=== PATIENT | female | born 2000 | race Caucasian/White ===

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

== ENCOUNTER → 2021-01-31 10:02 | Outpatient (CLI) | payer OTHER, SELFPAY | PROVIDERS: PCP Pediatrics; Referring Provider Pediatrics; Visit Provider Pediatrics | DX: R39.9 Unspecified symptoms and signs involving the genitourinary system (principal) | CPT/HCPCS: 87086; 87088 ==

== ENCOUNTER 2021-02-03 21:18 | Emergency (ER) | payer OTHER, SELFPAY ==
[2021-02-03 21:19] VITALS: BP 120/93; PULSE 98; RESP 16; TEMP 36.1; O2SAT 100; BMI 18.3
--- NOTE | 2021-02-03 22:17 | EKG12_ITS ---
Test Reason : CP Blood Pressure : / mmHG Vent. Rate : 071 BPM Atrial Rate : 071 BPM P-R Int : 122 ms QRS Dur : 072 ms QT Int : 388 ms P-R-T Axes : 071 075 056 degrees QTc Int : 421 ms Sinus rhythm with marked sinus arrhythmia Otherwise normal ECG Confirmed by GIO CLANCY, DENISA ([id number]), assignment editor BELEM DOSHI ([id number]) on 02/06/2021 9:28:10 AM Referred By: DIANN Confirmed By:DENISA POWERS MD
--- NOTE | 2021-02-03 22:18 | ED.VIS.GI ---
HPI HPI - GI History of Present Illness Chief Complaint: Abd Pain Informant: patient Abdominal Pain/Flank Pain Onset: Weeks (several) Context: Gradual Onset Timing: Continuous (all day today) Quality: Aching Location: Diffuse (but more LUQ) Current Severity: Moderate Maximum Severity: Moderate Worsened by: - (unsure; nothing that she knows of, and unk if food/meal association) Relieved by: Nothing Nausea/Vomiting/Emesis GI Symptom: Positive for Nausea; Negative for Vomiting Diarrhea/Melena/Hematochezia GI Symptom: Negative for Diarrhea, Melena and Hematochezia Associated Symptoms Associated Symptoms: Negative for Dysuria, Frequency, Hematuria and Urgency Narrative Narrative: Patient's been having intermittent left-sided lower sharp nonpleuritic brief chest pains for the past 1.5 weeks. She is also been having intermittent abdominal discomfort that seems diffuse but oftentimes focused in the left upper quadrant. That pain is been more significant and constant all day today hence her coming to the emergency department. While having all of this discomfort she has had 3 or 4 episodes of brief sharp relatively discomforting episodes of the chest pain. No shortness of breath, pleuritic symptoms, near syncope, palpitations. She did see her PCP regarding some of the symptoms, and was referred to cardiology after having a normal urinalysis. She has an echocardiogram scheduled after the weekend. [facility] Medical History Abnormal tilt table test (07/2018) Ovarian cyst POTS (postural orthostatic tachycardia syndrome) Home Medications norgestimate 0.25 mg-ethinyl estradiol 35 mcg tablet 1 tab PO DAILY 07/10/18 [History Last Taken Unknown] Iron (ferrous sulfate) 325 mg PO.IVFORM DAILY 02/03/21 [History Last Taken Unknown] dicyclomine 20 mg PO .q4-6h PRN #20 capsule 02/04/21 [Rx Last Taken Unknown] pantoprazole [Protonix] 40 mg PO DAILY #14 tab 02/04/21 [Rx Last Taken Unknown] Allergy/AdvReac Type Severity Reaction Status Date / Time No Known Allergies Allergy Verified 02/03/21 21:19 Family History Other Hypertension Social History Smoking Status: Never smoker alcohol intake: never substance use type: does not use what type of physical activity do you participate in: running and weight training frequency: 3-4 times per week ROS ROS ED Constitutional Constitutional ED: Denies chills or fever(s) Eyes Eyes: Denies change in vision or diplopia ENT ENT ED: Denies rhinorrhea or sore throat Cardiovascular Cardiovascular: Reports chest pain; Denies palpitations Respiratory/Chest Respiratory/Chest: Denies cough or dyspnea Gastrointestinal Gastrointestinal: Reports abdominal pain, nausea and vomiting; Denies diarrhea Genitourinary Genitourinary ED: Denies dysuria or hematuria Musculoskeletal Musculoskeletal: Denies back pain or neck pain Integumentary Denies abscess or rash Neurologic Neurologic: Denies headache(s), paresthesias or weakness Psychiatric Psychiatric: Denies anxiety or suicidal thoughts EXAM Physical Exam Const Vital Signs: 02/03/21 21:19 Temperature 97.0 F L Temperature Source Temporal Pulse Rate 98 Respiratory Rate 16 Blood Pressure 120/93 H Blood Pressure Mean 102 Pulse Ox 100 Oxygen Delivery Method Room Air Positive well nourished and well developed General Appearance ED: well developed and NAD HEENT Reports moist mucous membranes normocephalic and atraumatic Eyes PERRL and EOMs intact bilaterally Neck full ROM and supple Resp normal respiratory effort and clear to auscultation bilaterally Cardio regular rate, regular rhythm and no murmurs GI non-distended GI Narrative: Diffusely mildly tender, mostly at the medial aspect of the left upper quadrant subcostal area. No guarding or rebound. Negative Gracia's. Inspection: Negative for Kehr's sign positive Auscultation: normoactive bowel sounds Palpation: soft Back/Spine no CVA tenderness General Back: other FROM Extremity normal to inspection General Extremety ED: Negative for edema, pulses abnormal or tenderness General Extremity: Negative for edema or pulses abnormal Neuro oriented x3, CN's II-XII intact bilaterally and no sensory deficits noted Sensorium / Orientation: awake and alert Motor Exam: strength 5/5 throughout Skin no rashes or lesions noted and no wounds MDM MDM MDM Narrative Medical decision making narrative: Work-up is normal, labs noted, chest x-ray normal, EKG normal. Patient does feel better after a GI cocktail, Bentyl, Zofran. She has a little bit of residual discomfort but notices a big difference. I think all of this is gastrointestinal in etiology. This does not sound like biliary colic to me. The chest discomfort is more likely to be esophageal/upper GI in nature, she is scheduled for an echo which she should follow-up with, and I will place her on a PPI to try in the meantime. She is comfortable with that plan. Lab Data Attestation: I reviewed the patient's lab results. Labs: Laboratory Results - last 24 hr 02/03/21 02/03/21 02/03/21 22:38 22:38 22:38 WBC 5.9 RBC 4.45 Hgb 13.4 Hct 39.5 MCV 88.8 MCH 30.1 MCHC 33.9 RDW Std Deviation 34.9 L RDW Coeff of Thu 10.7 L Plt Count 269 MPV 9.8 Immature Gran % (Auto) 0.200 Neut % (Auto) 35.9 L Lymph % (Auto) 56.9 H Ch[place] % (Auto) 5.9 Eos % (Auto) 0.8 Baso % (Auto) 0.3 Absolute Neuts (auto) 2.1 Absolute Lymphs (auto) 3.36 Nucleated RBC % 0 Sodium 139 Potassium 3.3 L Chloride 105 Carbon Dioxide 26.0 Anion Gap 8 BUN 12 Creatinine 0.87 Estim Creat Clear Calc 74.48 Est GFR (MDRD) Af Amer 107 Est GFR (MDRD) Non-Af 89 BUN/Creatinine Ratio 13.9 Glucose 99 Calcium 9.0 Total Bilirubin 0.10 L AST 14 L ALT 15 Alkaline Phosphatase 53 Troponin I High Sens 3 Total Protein 7.4 Albumin 3.4 Globulin 4.0 Albumin/Globulin Ratio 0.8 L Lipase 357 Serum , Qual NEGATIVE Radiography Diagnostic Testing: Clinical Impression(s) from Imaging Studies Chest X-Ray 02/03/21 23:00 IMPRESSION: Normal x-ray examination of the chest. Electronically Signed: Robert Khan MD ([place]) at 23:13 EDT , Service support , EKG Initial EKG: Attestation: I personally reviewed and interpreted this EKG as follows: Interpretation: Sinus Rhythm and No Acute Injury Pattern Comments: Normal EKG Discharge Plan Triage Chief Complaint: Abd Pain ED Provider: Darren Brenner Dx/Rx/DC Orders Clinical Impression: Acute upper abdominal pain, Intermittent left-sided chest pain Instructions: ED Epigastric Pain Uncertain Cause Prescriptions: New pantoprazole [Protonix] 40 mg tablet,delayed release (DR/EC) 40 mg PO DAILY Qty: 14 RF: 0 dicyclomine 10 MG capsule 20 mg PO .q4-6h PRN (Reason: abdominal discomfort) Qty: 20 RF: 0 No Action norgestimate-ethinyl estradiol [Ortho-Cyclen (28)] 0.25-35 mg-mcg tablet 1 tab PO DAILY RF: 0 Iron (ferrous sulfate) 325 mg PO.IVFORM DAILY RF: 0 Primary Care Provider: Veena Tsai Referrals: Veena Tsai DO [Primary Care Provider] - 1 Week if not improving Disposition Disposition: Home, Self Care
[2021-02-03] MEDS: Mag Hydrox/Al Hydrox/Simeth 30 ML UDC PO (22:32)
[2021-02-03] MEDS: Dicyclomine 10 MG Capsule 20 MG PO (22:33)
[2021-02-03 22:48] LABS: Absolute Lymphocyte Count 3.36 X10^3/uL (0.83-4.51); Absolute Neutrophil Count 2.1 X10^3/uL (2.0-7.7); Basophil# 0.02 X10^3/uL; Basophil% 0.3 % (0-1); Eosinophil# 0.05 X10^3/uL; Eosinophils% 0.8 % (0-5); Hematocrit 39.5 % (37-47); Hemoglobin 13.4 g/dL (12.0-15.0); Lymphocyte # 3.36 X10^3/ul (0.83-4.51); Lymphocyte % 56.9 % (19-41); Mean Corp Hgb Conc 33.9 g/dL (32-36); Mean Corpuscular Hgb 30.1 pg (27.0-32.0); Mean Corpuscular Volume 88.8 fL (81-99); Mean Platelet Vol. 9.8 fl (6.2-12.0); Monocyte# 0.35 X10^3/uL; Monocyte% 5.9 % (0-10); NRBC Flagged by Analyzer 0 % (0-5); Neutrophil # 2.11 X10^3/uL (2.7-7.7); Neutrophil % 35.9 % (47-70); Platelet Count 269 K/mm3 (150-450); RBC Distribution Width CV 10.7 % (11.6-14.6); RBC Distribution Width SD 34.9 fl (35.1-43.9); Red Blood Count 4.45 M/mm3 (4.2-5.4); White Blood Count 5.9 K/mm3 (4.4-11.0)
--- NOTE | 2021-02-03 23:00 | RAD_ITS ---
STUDY: X-RAY CHEST REASON FOR EXAM: Female, 20 years old. chest pain TECHNIQUE: PA and lateral views of the chest. COMPARISON: 09/17/2017 FINDINGS: The lungs are clear and expanded. There is no demonstrated pleural abnormality. Normal size heart. Normal mediastinum and savannah. Normal visualized pulmonary arteries. Normal visualized aortic arch and descending thoracic aorta. Normal visualized thoracic spine. Normal visualized ribs, clavicles, and shoulders. There is no demonstrated abnormality of the visualized soft tissue structures of the upper abdomen. RAD/Chest PA and Lateral IMPRESSION: Normal x-ray examination of the chest. Electronically Signed: Robert Khan MD ([place]) at 23:13 EDT , Service support ,
[2021-02-03 23:05] LABS: ALB/GLOB Ratio 0.8 RATIO (0.9-2.4); AST(SGOT) 14 U/L (15-37); Alanine Aminotransfer ALT/SGPT 15 U/L (13-56); Albumin, Serum 3.4 g/dL (3.2-5.0); Alkaline Phosphatase 53 U/L (45-117); Anion Gap 8 (5-15); BUN 12 mg/dL (7-18); BUN/Creat Ratio 13.9 RATIO (10-20); Chloride 105 mmol/L (98-107); Creatinine, Serum 0.87 mg/dL (0.55-1.02); EST Glomerular Filtration Rate 89 mL/min (>60); Est Glom Filt Rate - Afr Amer 107 mL/min (>60); Estimated Creatinine Clearance 74.48 ml/min; Glucose 99 mg/dL (74-106); Lipase 357 U/L (73-393); Potassium 3.3 mmol/L (3.5-5.1); Protein, Total 7.4 g/dL (6.4-8.2); Sodium Level 139 mmol/L (136-145); Troponin-I HS 3 pg/mL (3.0-54.0)
[2021-02-03 23:12] LABS: Internal QC Validated? YES +Cl - CLEAR BKGD; Pregnancy, Serum, hCG Quali. NEGATIVE Negative
[2021-02-04] MEDS: Pantoprazole Sodium 40 MG Tablet PO (00:31)
[2021-02-04 00:32] VITALS: PULSE 60; RESP 16; O2SAT 100
[2021-02-04 00:34] VITALS: PULSE 60; RESP 16; O2SAT 100
== END 2021-02-04 00:35 | disposition home or self-care (01) ==
PROVIDERS: Emergency Provider Emergency Medicine; PCP Pediatrics
DX: R10.12 Left upper quadrant pain (principal); R07.89 Other chest pain
CPT/HCPCS: 71046; 80053; 83690; 84484; 84703; 85025; 93005; 99284; A4216; J2405

== ENCOUNTER → 2021-02-07 10:55 | Outpatient (CLI) | payer OTHER, SELFPAY ==
--- NOTE | 2021-02-07 10:58 | ECHOD_ITS ---
Reason For Study: Arrhythmia, chest pain Procedure This was a 2D Doppler, Color Flow transthoracic echocardiogram. Myocardial strain analysis was performed in this exam to aid in the assessment of cardiac function. Exam performed in department. Left Ventricle Normal LV size. Left ventricular systolic function is lower limits of normal. Normal diastology for age. No regional wall motion abnormalities noted. Right Ventricle Normal RV size. Normal systolic function. Atria Normal left atrium. Normal right atrium. Mitral Valve Equivocal mitral valve prolapse. Tricuspid Valve Normal tricuspid valve. Aortic Valve Normal aortic valve. Trisinus/trileaflet aortic valve. Pulmonic Valve Normal pulmonic valve. Great Vessels Normal aortic root. The pulmonary artery is normal size. Normal inferior vena cava. Pericardium/Pleural Trivial pericardial effusion. MMode/2D Measurements & Calculations LVIDd: 4.3 cm IVSd: 0.70 cm Ao root diam: 2.2 cm LVIDs: 3.0 cm LVPWd: 0.73 cm RVDd: 2.7 cm FS: 31.3 % LAV(MOD-bp): 18.6 ml LVAd ap4: 22.4 cm2 LVAd ap2: 23.0 cm2 LAV(MOD-bp) Indexed: 13.0 ml/m2 LVLd ap4: 6.8 cm LVLd ap2: 7.6 cm LAV(MOD-sp2): 19.7 ml EDV(MOD-sp4): 62.1 ml EDV(MOD-sp2): 59.6 ml LAV(MOD-sp4): 16.5 ml EDV(sp4-el): 62.3 ml EDV(sp2-el): 59.2 ml LVAs ap4: 14.2 cm2 LVAs ap2: 14.3 cm2 LVLs ap4: 6.0 cm LVLs ap2: 6.7 cm ESV(MOD-sp4): 29.3 ml ESV(MOD-sp2): 27.1 ml ESV(sp4-el): 28.3 ml ESV(sp2-el): 26.2 ml EF(MOD-sp4): 52.8 % EF(MOD-sp2): 54.5 % EF(sp4-el): 54.6 % SV(MOD-sp4): 32.8 ml SV(MOD-sp2): 32.5 ml SV(sp4-el): 34.0 ml LA dimension(2D): 2.7 cm LA A4 area: 9.5 cm2 RA A4 area: 8.6 cm2 Doppler Measurements & Calculations MV E max maximilian: 64.6 cm/sec Lat Peak E' Maximilian: 16.3 cm/sec Med Peak E' Maximilian: 13.3 cm/sec MV A max maximilian: 35.9 cm/sec E/E' lat: 4.0 E/E' med: 4.9 MV E/A: 1.8 Ao V2 max: 100.2 cm/sec LV V1 max: 82.2 cm/sec PA V2 max: 95.6 cm/sec Ao max P.0 mmHg LV V1 max P.7 mmHg ECHO/Echo Complete Interpretation Summary Normal LV size. Left ventricular systolic function is lower limits of normal. Normal diastology for age. Equivocal mitral valve prolapse. The global longitudinal strain is mildly abnormal. Ordering Physician: Sonny Yip Referring Physician: Veena Tsai Performed By: Guillermina Chaudhry RDCS
[2021-02-07 13:51] LABS: Erythrocyte Sedimentation Rate 4 mm/hr (0-30)
[2021-02-07 13:57] LABS: D-Dimer Quantitative (DVT/PE) 0.62 FEU/ug/m (0.27-0.49)
[2021-02-07 14:11] LABS: CRP, High Sensitivity Cardiac 4.61 mg/L
[2021-02-07 17:28] LABS: Troponin-I HS 4 pg/mL (3.0-54.0)
== END ==
PROVIDERS: PCP Pediatrics; Referring Provider Internal Medicine Cardiovascular Disease; Visit Provider Internal Medicine Cardiovascular Disease
DX: I49.8 Other specified cardiac arrhythmias (principal); R42 Dizziness and giddiness; R06.02 Shortness of breath; R07.89 Other chest pain; R10.10 Upper abdominal pain, unspecified
CPT/HCPCS: 36415; 84484; 85379; 85652; 86141; 93306

== ENCOUNTER → 2021-02-07 14:56 | Outpatient (CLI) | payer OTHER, SELFPAY ==
--- NOTE | 2021-02-07 15:22 | CT_ITS ---
STUDY: CTA CHEST REASON FOR EXAM: Female, 20 years old. ELEVATED D-DIMER RADIATION DOSAGE (If Supplied By Facility): CTDIvol = ( 3.78 ) mGy, DLP = ( 126.37 ) mGycm TECHNIQUE: The examination was performed with the intravenous administration of IV 100mL Isovue-370. Post-processing of the angiographic images was performed, with multiplanar reformation and 3D reconstruction. Individualized dose optimization techniques were used for this CT. COMPARISON: Comparison is made with prior chest radiograph dated 02/03/2021. FINDINGS: Normal enhancement of the main pulmonary artery and right and left pulmonary arteries. Normal enhancement of the bilateral peripheral pulmonary arteries. There is no demonstrated pulmonary embolism. Normal thoracic aorta and visualized great vessels. There is no demonstrated aortic dissection. Normal heart and pericardium. Normal mediastinum. Normal hilar regions. Normal visualized trachea and bronchi. The lungs are well expanded. Normal pulmonary parenchyma. Normal pleura. Normal chest wall structures. Normal osseous structures. Normal visualized upper abdomen. CT/CTA Chest W/WO Contrast IMPRESSION: Normal CTA chest examination, without a demonstrated pulmonary embolism or arterial dissection. Electronically Signed: Elvis Rondon MD at 15:54 EDT , Service support ,
== END ==
PROVIDERS: PCP Pediatrics; Referring Provider Internal Medicine Cardiovascular Disease; Visit Provider Internal Medicine Cardiovascular Disease
DX: R79.1 Abnormal coagulation profile (principal)
CPT/HCPCS: 71275; Q9967

== ENCOUNTER → 2021-02-26 12:26 | Outpatient (CLI) | payer OTHER, SELFPAY ==
[2021-02-26 14:21] LABS: Internal QC Validated? YES +Cl - CLEAR BKGD; Pregnancy, Urine Negative Negative
[2021-02-26 14:23] LABS: CRP, High Sensitivity Cardiac 0.93 mg/L
== END ==
PROVIDERS: PCP Pediatrics; Visit Provider Internal Medicine Cardiovascular Disease
DX: R79.82 Elevated C-reactive protein (CRP) (principal); R10.0 Acute abdomen
CPT/HCPCS: 36415; 81025; 86141

== ENCOUNTER → 2021-02-26 14:12 | Outpatient (CLI) | payer OTHER, SELFPAY ==
--- NOTE | 2021-02-26 14:16 | CT_ITS ---
INDICATION: pain EXAMINATION: CT CHEST, ABDOMEN AND PELVIS WITH CONTRAST - CT Chest Abdomen And Pelvis W/ Contrast Injection TECHNIQUE: Helically acquired images were obtained of the chest, abdomen, and pelvis following IV contrast. CTA protocol with 3D reformats were performed. A radiation dose optimization technique was used for this scan. Oral contrast: None. COMPARISON: CT chest 02/07/2021 FINDINGS: ----Chest: LUNGS, PLEURA AND LARGE AIRWAYS: No masses, consolidation, or edema. No pleural effusion or thickening. No pneumothorax. THYROID: No thyroid lesions. HEART AND PERICARDIUM: Heart size is normal. No pericardial effusion. VESSELS: Thoracic aorta is not dilated. No aortic dissection. No obvious central pulmonary embolism although this study was not performed with the pulmonary embolism protocol. MEDIASTINUM AND IVETH: No mediastinal or hilar adenopathy. Esophagus is unremarkable. No hiatal hernia. BONES: No suspicious lytic or blastic abnormality. ----Abdomen/Pelvis: LIVER: Homogeneous. No focal mass. GALLBLADDER AND BILIARY TREE: No calcified gallstones. No gallbladder distension or wall edema. No intra- or extrahepatic biliary ductal dilation. PANCREAS: No focal cystic or solid mass. SPLEEN: Normal size without focal cystic or solid mass. ADRENAL GLANDS: No nodules. KIDNEYS AND URETERS: Normal renal size and position. No hydronephrosis. PERITONEUM: There is trace free fluid right hemipelvis which could be physiologic in a young menstruating female. BOWEL: The appendix is not definitively visualized but secondary signs of appendicitis are not seen other than trace free fluid. There is a candidate potentially appendix on axial image 71 which is within normal limits. No stomach or bowel distension. No focal inflammatory change. LYMPH NODES: No enlarged mesenteric or retroperitoneal lymph nodes. VESSELS: Aorta is non-dilated. URINARY BLADDER: Unremarkable. REPRODUCTIVE ORGANS: No pelvic masses. ABDOMINAL WALL: No discrete abdominal or pelvic wall hernia. BONES: No lytic or blastic abnormality. CT/CT Chest, Abd, Pel w/Contrast IMPRESSION: There is trace free fluid in right hemipelvis which is likely physiologic in a young menstruating female. Otherwise, there is no evidence for acute process involving the chest abdomen or pelvis. Electronically Signed: Avinash Delcid MD at 16:35 EST Tel , Service support ,
== END ==
PROVIDERS: PCP Pediatrics; Referring Provider Internal Medicine Cardiovascular Disease; Visit Provider Internal Medicine Cardiovascular Disease
DX: R10.0 Acute abdomen (principal); R07.9 Chest pain, unspecified
CPT/HCPCS: 71260; 74177; Q9967

== ENCOUNTER 2021-07-17 07:42 | Outpatient (CLI) | payer OTHER, SELFPAY ==
[2021-07-17 12:13] LABS: Erythrocyte Sedimentation Rate 6 mm/hr (0-30)
[2021-07-17 12:14] LABS: Absolute Lymphocyte Count 2.33 X10^3/uL (0.83-4.51); Absolute Neutrophil Count 1.8 X10^3/uL (2.0-7.7); Basophil# 0.02 X10^3/uL; Basophil% 0.4 % (0-1); Eosinophil# 0.13 X10^3/uL; Eosinophils% 2.9 % (0-5); Hemoglobin 14.4 g/dL (12.0-15.0); Lymphocyte # 2.33 X10^3/ul (0.83-4.51); Lymphocyte % 51.5 % (19-41); Mean Corp Hgb Conc 33.5 g/dL (32-36); Mean Corpuscular Hgb 30.3 pg (27.0-32.0); Mean Corpuscular Volume 90.3 fL (81-99); Mean Platelet Vol. 10.9 fl (6.2-12.0); Monocyte# 0.22 X10^3/uL; Monocyte% 4.9 % (0-10); NRBC Flagged by Analyzer 0 % (0-5); Neutrophil # 1.81 X10^3/uL (2.7-7.7); Neutrophil % 40.1 % (47-70); Platelet Count 254 K/mm3 (150-450); RBC Distribution Width CV 11.5 % (11.6-14.6); Red Blood Count 4.76 M/mm3 (4.2-5.4); White Blood Count 4.5 K/mm3 (4.4-11.0)
[2021-07-17 12:50] LABS: ALB/GLOB Ratio 0.9 RATIO (0.9-2.4); AST(SGOT) 13 U/L (15-37); Alanine Aminotransfer ALT/SGPT 21 U/L (13-56); Albumin, Serum 4.1 g/dL (3.2-5.0); Alkaline Phosphatase 58 U/L (45-117); Anion Gap 9 (5-15); BUN 12 mg/dL (7-18); BUN/Creat Ratio 14.5 RATIO (10-20); CRP < 2.90 mg/L (0.0-3.0); Calcium,Total 9.1 mg/dL (8.5-10.1); Chloride 105 mmol/L (98-107); Creatinine, Serum 0.83 mg/dL (0.55-1.02); EST Glomerular Filtration Rate 93 mL/min (>60); Est Glom Filt Rate - Afr Amer 112 mL/min (>60); Globulin 4.5 g/dL (2.2-4.2); Glucose 81 mg/dL (74-106); Potassium 3.3 mmol/L (3.5-5.1); Protein, Total 8.6 g/dL (6.4-8.2); Sodium Level 138 mmol/L (136-145)
[2021-07-19 17:07] LABS: Endomysial Antibody IgA Negative (Negative); Immunoglobulin A 409 mg/dL (87-352)
[2021-07-19 20:01] LABS: Gastrin, Serum 15 pg/mL (0-115); t-Transglutaminase IgA <2 U/mL (0-3)
[2021-07-20 11:32] LABS: Fats, Neutral Normal (.); Fats, Total Normal (.)
== END 2021-07-17 23:59 | disposition home or self-care (01) ==
PROVIDERS: PCP Pediatrics; Referring Provider Surgery; Visit Provider Surgery
DX: R10.12 Left upper quadrant pain (principal); R19.7 Diarrhea, unspecified; R11.0 Nausea; R11.12 Projectile vomiting
CPT/HCPCS: 36415; 80053; 82705; 82784; 82941; 83516; 85025; 85652; 86140; 86255; 87177; 87209; 87493; 87506

== ENCOUNTER 2021-07-18 07:46 | Outpatient (CLI) | payer OTHER, SELFPAY ==
[2021-07-28 11:22] LABS: 5-HIAA, 24UR 1.8 mg/24 hr (0.0-14.9); 5-HIAA, UR 5.1 mg/L (Undefined)
== END 2021-07-18 23:59 | disposition home or self-care (01) ==
PROVIDERS: Referring Provider Surgery; Visit Provider Surgery
DX: R10.12 Left upper quadrant pain (principal); R19.7 Diarrhea, unspecified
CPT/HCPCS: 81050; 83497

== ENCOUNTER 2021-07-24 06:13 | Day surgery (SDC) | payer OTHER, SELFPAY ==
[2021-07-24] VITALS (10 sets, daily range): BP systolic 85–99; BP diastolic 50–73; PULSE 67–90; RESP 16–18; TEMP 35.9–36.8; O2SAT 98–100; BMI 17.7
--- NOTE | 2021-07-24 | EGD_PTH ---
PATIENT: DEE LARIOS LOC: [facility] U#:[id number] AGE/SX: 21/F ROOM: RE07/24/[address]: Dr. Will Lion MD : 2000 BED: DIS: 07/24/2021 SPEC #: [id number] RECD: 07/24/21 09:43 STATUS: JOVANA BOYDJaren #: [id number] MURRAY: 07/24/21 00:[address]: Will Lion DEPT: SURGICAL PATHOLOGY RECD BY: Nathan Benito ENTERED: 07/24/21 10:24 SP TYPE: EGD BIOPSY OT DR: Dr. Veena Tsai, DO Tissues: A - Duodenum, NOS B - Gastric mucous membrane C - Esophageal mucous membrane D - Esophageal mucous membrane E - Ileum, NOS F - COLON BIOPSY Procedures: Surgery Specimen Level IV HEADER OPERATION: [place] [place] PRE-OP DIAGNOSIS: Diarrhea, abdominal pain TISSUE SUBMITTED: A ? Duodenal biopsy, B ? Antrum biopsy for H. pylori and path, C ? Distal esophagus biopsy, D ? Mid esophagus biopsy, E ? Terminal ileum biopsy, F ? Random colon biopsy MICROSCOPIC DIAGNOSIS A. Duodenum, biopsy: No pathologic change. B. Gastric antrum, biopsy: Chronic gastritis. See comment. C. Distal esophagus, biopsy: Gastroesophageal junction with mild chronic inflammation. Focal changes of reflux. No evidence of goblet cell metaplasia. See comment. D. Mid esophagus, biopsy: No pathologic change. E. Terminal ileum, biopsy: No pathologic change. F. Colon, random biopsy: No pathologic change. AM:marcy 07/25/2021 COMMENT B. The results of immunohistochemistry for Helicobacter pylori will be reported separately ([id number]). C. Alcian blue/PAS stain with matched control supports the above diagnosis. MICROSCOPIC DESCRIPTION Slides are reviewed. GROSS DESCRIPTION A - Received in fixative is one container labeled with the patient's name and designated duodenum biopsy. The specimen consists of multiple irregular fragments of light key soft tissue that in aggregate measure 0.5 x 0.5 x 0.1 cm. The specimen is totally submitted in one cassette. B - Received in fixative is one container labeled with the patient's name and designated antrum biopsy. The specimen consists of one irregular fragment of light key soft tissue that measures 0.3 x 0.3 x 0.1 cm. The specimen is totally submitted in one cassette. C - Received in fixative is one container labeled with the patient's name and designated distal esophagus biopsy. The specimen consists of multiple irregular fragments of light key soft tissue that in aggregate measure 1 x 0.5 x 0.1 cm. The specimen is totally submitted in one cassette. D - Received in fixative is one container labeled with the patient's name and designated mid esophagus biopsy. The specimen consists of one irregular fragment of light key soft tissue that measures 0.3 x 0.2 x 0.1 cm. The specimen is totally submitted in one cassette. E - Received in fixative is one container labeled with the patient's name and designated terminal ileum biopsy. The specimen consists of two irregular fragments of light key soft tissue that in aggregate measure 0.8 x 0.3 x 0.1 cm. The specimen is totally submitted in one cassette. F - Received in fixative is one container labeled with the patient's name and designated random colon biopsy. The specimen consists of multiple irregular fragments of light key soft tissue that in aggregate measure 1.5 x 0.5 x 0.1 cm. The specimen is totally submitted in one cassette. / SJ:rg 07/24/2021 TC:3 CPT: 38703 x6, 89119
--- NOTE | 2021-07-24 06:18 | PCM.HP.BLA ---
History and Physical Date of Admission: 07/24/21 Visit Reasons: abd pain/ scopes Chief Complaint: abd pain/scopes Hat Blocker Required: No Is patient in pain?: No Allergies No Known Allergies Allergy (Verified 07/10/21 12:36) Medications norgestimate 0.25 mg-ethinyl estradiol 35 mcg tablet 1 tab PO DAILY 07/10/18 [History Confirmed 07/10/21] colchicine 0.6 mg capsule 0.6 mg PO BID #60 cap 02/12/21 [Rx Confirmed 07/10/21] ferrous sulfate 325 mg (65 mg iron) tablet 325 mg PO DAILY 02/19/21 [History Confirmed 07/10/21] promethazine 25 mg tablet 25 mg PO TID PRN #20 tab 06/20/21 [Rx Confirmed 07/10/21] [facility] Medical History (Updated 07/10/21 @ 13:[address] Will Lion MD) Abnormal tilt table test (07/2018) Acute cervical sprain Nonrheumatic mitral (valve) prolapse Ovarian cyst Pericardial effusion POTS (postural orthostatic tachycardia syndrome) Segmental and somatic dysfunction of cervical region Segmental and somatic dysfunction of lumbar region Segmental and somatic dysfunction of thoracic region Travelers' diarrhea Family History Other Hypertension Social History Smoking Status: Never smoker alcohol intake: never substance use type: does not use what type of physical activity do you participate in: running and weight training frequency: 3-4 times per week HPI HPI HPI: DEE LARIOS, is a 21 F who presents to the office today for surgical consultation regarding abdominal pain and diarrhea. She was seen at the [facility] emergency room on February 03, 2021. She was having left-sided lower sharp brief episodes of chest pain. There is additional left upper quadrant abdominal pain. This has been going on for 1 to 2 weeks at that time. Was felt possibly to be gastroenterologic. She was given a GI cocktail with some improvement. She was placed on a proton pump inhibitor. Laboratory at that time was notable for a normal CBC and a normal complete metabolic profile. Lipase was 357 at that time. Chest x-ray was normal. An EKG was normal. She was also seen by Dr. Sonny Yip cardiology. Patient had a CT scan of the chest which was not remarkable. She had been placed on colchicine as a anti-inflammatory with some improvement. On February 07, 2021 she had an elevated C-reactive protein high sensitivity at 4.61 Previously July 2018 she was diagnosed with postural orthostatic tachycardia syndrome. She had an abnormal tilt test. June 20, 2021 she was seen at urgent care for abdominal pain nausea and diarrhea. She had 4 to 5-day history of persistent watery stool. She did have some local tap water while on vacation in [place] the week prior. She was diagnosed with traveler's diarrhea. She was placed on azithromycin and promethazine as well as [id number] Imodium and bismuth The patient has been seen by an sheet metal technician Dr. Abdifatah Flores. Skin test were done. Apparently there is no reaction for gluten dairy or peanut butter though it is these things to cause her trouble. She can eat all meats including chicken. She states that 4 to 5 months ago she had her typical morning breakfast of a bagel with cheese and then had severe profuse nonbloody diarrhea. No fever chills sweats. She has cramping. No family history of gallbladder disease. No family history of Crohn's disease or ulcerative colitis. The patient is chronically low on iron. She is now completely intolerant to dairy products and to gluten products and to peanut butter. Any of these items will cause abdominal cramping and diarrhea. She is able to eat gluten-free bread and meats and fruits and vegetables. She has not been tested positive for COVID-19 but after cardiology evaluation by Dr. Sonny Yip and because of what I believed was tentatively diagnosis possible pericarditis the patient was felt possibly to have had COVID-19. She has not been vaccinated Normal menstrual periods. She has not had blood analysis for celiac. She has not had laboratory urine work-up for diarrhea. She has not had stool submitted yet. She has not had endoscopy. Patient is currently in school as a sheet metal technician ROS General General: Yes weight change and fatigue; No appetite, colon cancer, breast cancer or weakness HEENT HEENT: No difficulty swallowing, eye injury, eye surgery, swollen glands or hoarseness Endo Endocrine: No thyroid disease, diabetes mellitus, thyroid cancer, Hair loss, heat intolerance or cold intolerance Skin Skin: No rash or changing moles Musc Musculoskeletal: No back problems, arthritis, rheumatoid arthritis, gout or joint pain Cardio Cardiovascular: No murmur, pacemaker, heart disease, atrial fibrillation, high blood pressure, heart attack, heart stent, palpitations, shortness of breat with exertion or chest pain Psych Psychiatric: No depression, anxiety or hearing voices Resp Respiratory: No shortness of breath, No sleep apnea, No cough, No COPD, No asthma, No emphysema and No wheezing Gastro Gastrointestinal: Yes abdominal pain, Yes nausea or vomiting, Yes diarrhea, No constipation, No blood in stool, No acid reflux, No hemorrhoids, No ulcers, No gallbladder problem and No black,tarry stools Ty Hematologic: No blood thinners, No blood disorders, No bleeding, Yes anemia and No blood clots Neuro Neurologic: No system reviewed and no additional complaints, except as documented, No as per HPI, No abnormal gait, No abnormal hearing, No abnormal movements, No abnormal speech, No behavioral changes, No burning sensations, No confusion, No convulsions, No disequilibrium, No dizziness, No localized weakness, No frequent falls, No headache(s), No lack of coordination, No loss of vision, No memory loss, No numbness, No other visual disturbances, No radicular pain, No restless legs, No sensory deficit, No syncope, No tingling, No tremor(s), No weakness and No other Exam Const General: cooperative, comfortable and no acute distress Nutritional Appearance: underweight Orientation: alert, awake and oriented x3 HENMT Head: normal to inspection Eyes General: appearance normal, both eyes and all related structures Neck Neck: normal visual inspection Resp Effort & Inspection: normal respiratory effort Auscultation: clear to auscultation bilaterally Cardio Rate: regular rate Rhythm: regular rhythm GI Other: Soft, extraordinarily slender, tender right medial subcostal that without mass. Borborygmi noted Skin General: no rashes or lesions noted Neuro General: patient alert and patient awake Extrem General: normal to inspection Psych Appearance: grossly normal Assessment and Plan Assessment and Plan (1) Diarrhea: Status: Acute Qualifiers: Diarrhea type: unspecified type Qualified Code(s): R19.7 - Diarrhea, unspecified (2) Abdominal pain: Status: Acute Qualifiers: Abdominal location: left upper quadrant Qualified Code(s): R10.12 - Left upper quadrant pain Plan - Dr. Will Lion MD: 21-year-old female. Intolerance to dairy and gluten. Profuse diarrhea. Left upper quadrant abdominal pain of undetermined etiology. Slight weight loss. Unremarkable allergy skin testing Propose that we investigate for gluten insufficiency with appropriate serology. We will also check for fasting gastrin and VIP and chromogen a level and urine 5 HIAA. Stool for routine analysis INSPECTION MACHINE TENDER and C. difficile and O&P and fecal fat. We will obtain a complete metabolic profile and CBC with differential and ESR and CRP Propose a combined esophagogastroduodenoscopy with anticipated biopsy and colonoscopy with anticipated biopsy. Plan for intubation of terminal ileum if feasible. Pending this evaluation was then try to further assist the patient with diagnosis and treatment. The patient is accompanied by her mother today. Pending results we will then consider if additional GI consultation might be of benefit. She has had an opportunity to ask and have questions answered. We will schedule and proceed as noted. Copy:DO Will Powell M.D., F.A.C.S CBC normal except for 40% neutrophils and 51% lymphocytes. Sed rate 6. Potassium slightly low at 3.3. Liver function tests normal. CRP less than 2.9. Gastrin level 15 low normal. Urine for 5 HIAA pending. IgA 409 slightly high. Endomysial IgA antibody negative. Tiss Transglutamin IgA normal. Will Lion M.D., F.A.C.S.
[2021-07-24 06:41] LABS: Internal QC Validated? YES +Cl - CLEAR BKGD; Pregnancy, Urine Negative Negative
[2021-07-24] MEDS: Lactated Ringers 1,000 ML 15 ML IV (06:45)
--- NOTE | 2021-07-24 07:15 | IMM_PTH ---
PATIENT: DEE LARIOS LOC: EN U#:[id number] AGE/SX: 21/F ROOM: RE07/24/[address]: Dr. Will Lion MD : 2000 BED: DIS: 07/24/2021 SPEC #: [id number] RECD: 07/24/21 12:21 STATUS: JOVANA REJaren #: [id number] MURRAY: 07/24/21 07:[address]: Will Lion DEPT: IMMUNOHISTOCHEMISTRY RECD BY: Dayna Monique ENTERED: 07/24/21 12:22 SP TYPE: IMMUNO OTHR DR: Dr. Veena Tsai, DO Tissues: B - Stomach, NOS Procedures: H Pylori (initial) PHYSICIAN & INSTITUTION [place] [id number] SPECIMEN INFORMATION: Tissue Source: B ? Antrum biopsy Clinical Info: Diarrhea, abdominal pain Specimen Number: [id number] CPT code: 36688 METHODOLOGY: Deparaffinized sections of prefer/formalin-fixed tissue or PAP/DQ stained slides are incubated with monoclonal/polyclonal antibodies/oligonucleotide probes. Localization is made via biotin free immunoperoxidase method. Appropriate controls are performed and reacted as expected. Results on target cell population are indicated in the following table: RESULTS: ANTIBODY / CLONE RESULT Block B H Pylori (polyclonal) negative These tests were developed and their performance characteristics determined by [facility]. They may not have been cleared or approved by the U.S. Food and Drug Administration. The FDA has determined that such clearance or approval is not necessary. INTERPRETATION: B. Antrum biopsy: Negative for Helicobacter pylori organisms. AM:marcy 07/25/2021
--- NOTE | 2021-07-24 08:03 | OP.EGD_ITS ---
Patient Name: Bora Cook Procedure Date: 07/24/2021 7:24 AM Date of : 2000 Age: 21 Procedure: Upper GI endoscopy Indications: Epigastric abdominal pain Providers: Will Lion MD Medicines: See the Anesthesia note for documentation of the administered medications Complications: No immediate complications. Procedure: Pre-Anesthesia Assessment: - Prior to the procedure, a History and Physical was performed, and patient medications and allergies were reviewed. The patient's tolerance of previous anesthesia was also reviewed. The risks and benefits of the procedure and the sedation options and risks were discussed with the patient. All questions were answered, and informed consent was obtained. Prior Anticoagulants: The patient has taken no previous anticoagulant or antiplatelet agents. ASA Grade Assessment: II - A patient with mild systemic disease. After reviewing the risks and benefits, the patient was deemed in satisfactory condition to undergo the procedure. After obtaining informed consent, the endoscope was passed under direct vision. Throughout the procedure, the patient's blood pressure, pulse, and oxygen saturations were monitored continuously. The gastroscope was introduced through the mouth, and advanced to the second part of duodenum. The upper GI endoscopy was accomplished without difficulty. The patient tolerated the procedure well. Scope In: 7:28:23 AM Scope Out: 7:34:42 AM Total Procedure Duration Time 0 hours 6 minutes 19 seconds Findings: The examined esophagus was normal. The Z-line was regular and was found 39 cm from the incisors. Biopsies were taken with a cold forceps for histology. The mid esophagus was normal. Biopsies were taken with a cold forceps for histology. The entire examined stomach was normal. Biopsies were taken with a cold forceps for histology. The examined duodenum was normal. Biopsies were taken with a cold forceps for histology. Impression: - Normal esophagus. - Z-line regular, 39 cm from the incisors. Biopsied. - Normal mid esophagus. Biopsied. - Normal stomach. Biopsied at antrum. - Normal examined duodenum. Biopsied. Recommendation: - Discharge patient to home. - Resume previous diet. - Continue present medications. - Telephone my office for pathology results in 1 week. Procedure Code(s): --- Professional --- 70555, Esophagogastroduodenoscopy, flexible, transoral; with biopsy, single or multiple Diagnosis Code(s): --- Professional --- R10.13, Epigastric pain CPT copyright 2017 [employer]. All rights reserved. The codes documented in this report are preliminary and upon boiling house hand review may be revised to meet current compliance requirements. Will Lion MD 07/24/2021 8:02:38 AM This report has been signed electronically. Number of Addenda: 0 Note Initiated On: 07/24/2021 7:24 AM
--- NOTE | 2021-07-24 08:05 | OP.COLON_ITS ---
Patient Name: Bora Cook Procedure Date: 07/24/2021 7:38 AM Date of : 2000 Age: 21 Procedure: Colonoscopy Indications: Clinically significant diarrhea of unexplained origin Providers: Will Lion MD Medicines: See the Anesthesia note for documentation of the administered medications Patient Profile: Last Colonoscopy: none. The patient's first colonoscopy is today. Complications: No immediate complications. Procedure: Pre-Anesthesia Assessment: - Prior to the procedure, a History and Physical was performed, and patient medications and allergies were reviewed. The patient's tolerance of previous anesthesia was also reviewed. The risks and benefits of the procedure and the sedation options and risks were discussed with the patient. All questions were answered, and informed consent was obtained. Prior Anticoagulants: The patient has taken no previous anticoagulant or antiplatelet agents. ASA Grade Assessment: II - A patient with mild systemic disease. After reviewing the risks and benefits, the patient was deemed in satisfactory condition to undergo the procedure. After I obtained informed consent, the scope was passed under direct vision. Throughout the procedure, the patient's blood pressure, pulse, and oxygen saturations were monitored continuously. The pediatric colonoscope was introduced through the anus and advanced to the cecum, identified by appendiceal orifice and ileocecal valve. The colonoscopy was performed without difficulty. The patient tolerated the procedure well. The quality of the bowel preparation was excellent. The terminal ileum, the ileocecal valve and the appendiceal orifice were photographed. Scope In: 7:40:00 AM Scope Withdrawal Time 0 hours 13 minutes 8 seconds Scope Out: 7:58:03 AM Total Procedure Duration Time 0 hours 18 minutes 3 seconds Findings: The perianal and digital rectal examinations were normal. The colon (entire examined portion) appeared normal. Biopsies for histology were taken with a cold forceps from the entire colon for evaluation of microscopic colitis. The terminal ileum appeared normal. Biopsies were taken with a cold forceps for histology. Impression: - The entire examined colon is normal. Biopsied. - The examined portion of the ileum was normal. Biopsied. Recommendation: - Discharge patient to home. - Resume previous diet. - Continue present medications. - Repeat colonoscopy at age 51 for screening purposes. - Telephone my office for pathology results in 1 week. Procedure Code(s): --- Professional --- 16150, Colonoscopy, flexible; with biopsy, single or multiple Diagnosis Code(s): --- Professional --- R19.7, Diarrhea, unspecified CPT copyright 2017 [employer]. All rights reserved. The codes documented in this report are preliminary and upon processor solid propellant review may be revised to meet current compliance requirements. Will Lion MD 07/24/2021 8:05:16 AM This report has been signed electronically. Number of Addenda: 0 Note Initiated On: 07/24/2021 7:38 AM
== END 2021-07-24 09:28 | disposition home or self-care (01) ==
LOC: EN 06:15 → AC 06:15
PROVIDERS: Anesthesiology; PCP Pediatrics; Referring Provider Pediatrics; Visit Provider Surgery
PROC: 0DJD8ZZ Inspection of Lower Intestinal Tract, Via Natural or Artificial Opening Endoscopic (ICD-10-PCS; CPT 45378; principal; 2021-07-24 07:10)
DX: K29.50 Unspecified chronic gastritis without bleeding (principal); R19.7 Diarrhea, unspecified; R10.12 Left upper quadrant pain; R10.13 Epigastric pain; R63.6 Underweight; Z68.1 Body mass index [BMI] 19.9 or less, adult; Z20.822 Contact with and (suspected) exposure to COVID-19
CPT/HCPCS: 45380; 43239; 81025; 87426; 88305; 88342; C9803; J7120

== ENCOUNTER → 2022-08-01 | Outpatient (CLI) | payer OTHER, SELFPAY ==
--- NOTE | 2022-08-01 18:19 | US_ITS ---
STUDY: ULTRASOUND OF THE FEMALE PELVIS - COMPLETE REASON FOR EXAM: Female, 22 years old. HX OV CYSTS- LLQ PAIN LMP: July 20, 2022. TECHNIQUE: Transvaginal TECHNICAL QUALITY: Adequate. COMPARISON: Comparison is made with prior study dated December 30, 2017. FINDINGS: The uterus is anteverted and is in a midline position. The uterus measures 6.6 cm x 3.9 cm x 2.7 cm. Normal uterine cervix. The endometrium measures 2.0 mm in thickness, and is hyperechoic. Trace amount of fluid is seen in the endometrium. There is no demonstrated endometrial mass. There is no demonstrated myometrial mass. I.U.D. - The patient does not have an I.U.D. The right ovary is visualized. The right ovary measures 3.2 cm x 2.1 cm x 2.1 cm. There is no right ovarian cyst or ovarian mass. There is no visualized right adnexal mass or complex lesion. There is normal arterial and normal venous vascularity. The left ovary is visualized. The left ovary measures 2 cm x 1.4 cm x 1.2 cm. There is no left ovarian cyst or ovarian mass. There is no visualized left adnexal mass or complex lesion. There is normal arterial and normal venous vascularity. There is no fluid in the cul-de-sac. The pre void volume of the bladder was 12.8 ml. US/Transvaginal Non- IMPRESSION: Normal female pelvis. Electronically Signed: Elvis Rondon MD at 14:46 EDT ,
--- NOTE | 2022-08-01 18:20 | US_ITS ---
STUDY: THYROID ULTRASOUND REASON FOR EXAM: Female, 22 years old. ENLARGED THYROID TECHNIQUE: Ultrasound evaluation of the thyroid was performed with real-time and static camacho-scale imaging. COMPARISON: None. FINDINGS: RIGHT LOBE: The right lobe of the thyroid gland measures 5.0 x 1.1 x 1.3 cm. There is a homogeneous echotexture. There are no demonstrated solid, cystic or complex lesions. LEFT LOBE: The left lobe of the thyroid gland measures 4.5 x 1.2 x 1.1 cm. There is a homogeneous echotexture. There is a hypoechoic partially cystic upper pole well-circumscribed nodule measuring 3 x 2 x 2 mm. ISTHMUS: The isthmus measures 2 mm . The regional lymph nodes are normal. US/Thyroid IMPRESSION: Upper pole partially cystic smooth bordered lesion measuring 3 x 2 x 2 mm consistent with TI-RADS 1, benign. Electronically Signed: Rao Garnett DO at 18:47 EDT ,
== END | disposition home or self-care (01) ==
LOC: US 18:16
PROVIDERS: PCP Pediatrics; Visit Provider Internal Medicine
DX: E04.9 Nontoxic goiter, unspecified (principal); R10.32 Left lower quadrant pain; Z87.42 Personal history of other diseases of the female genital tract
CPT/HCPCS: 76536; 76830

== ENCOUNTER → 2023-01-14 | Outpatient (CLI) | payer OTHER, SELFPAY ==
[2023-01-14 13:28] LABS: Absolute Lymphocyte Count 2.53 X10^3/uL (0.83-4.51); Absolute Neutrophil Count 3.3 X10^3/uL (2.0-7.7); Basophil# 0.03 X10^3/uL; Basophil% 0.5 % (0-1); Eosinophil# 0.04 X10^3/uL; Eosinophils% 0.7 % (0-5); Hematocrit 42.3 % (37-47); Hemoglobin 13.8 g/dL (12.0-15.0); Lymphocyte # 2.53 X10^3/ul (0.83-4.51); Lymphocyte % 41.5 % (19-41); Mean Corp Hgb Conc 32.6 g/dL (32-36); Mean Corpuscular Hgb 29.4 pg (27.0-32.0); Mean Platelet Vol. 9.5 fl (6.2-12.0); Monocyte# 0.23 X10^3/uL; Monocyte% 3.8 % (0-10); NRBC Flagged by Analyzer 0 % (0-5); Neutrophil # 3.26 X10^3/uL (2.7-7.7); Neutrophil % 53.3 % (47-70); Platelet Count 290 K/mm3 (150-450); RBC Distribution Width CV 11.3 % (11.6-14.6); RBC Distribution Width SD 37.3 fl (35.1-43.9); White Blood Count 6.1 K/mm3 (4.4-11.0)
[2023-01-14 13:54] LABS: Vitamin B12 397 pg/mL (211-911)
[2023-01-14 13:55] LABS: CRP, High Sensitivity Cardiac 2.23 mg/L
[2023-01-14 14:01] LABS: ALB/GLOB Ratio 0.8 RATIO (0.9-2.4); AST(SGOT) 13 U/L (15-37); Alanine Aminotransfer ALT/SGPT 18 U/L (13-56); Albumin, Serum 3.3 g/dL (3.2-5.0); Alkaline Phosphatase 55 U/L (45-117); Anion Gap 6 (5-15); BUN 9 mg/dL (7-18); BUN/Creat Ratio 11.4 RATIO (10-20); Calcium,Total 8.6 mg/dL (8.5-10.1); Chloride 108 mmol/L (98-107); Creatinine, Serum 0.79 mg/dL (0.55-1.02); EST Glomerular Filtration Rate 97 mL/min (>60); Est Glom Filt Rate - Afr Amer 118 mL/min (>60); Free T3 2.6 pg/mL (2.18-3.98); Globulin 4.2 g/dL (2.2-4.2); Glucose 104 mg/dL (74-106); Potassium 3.8 mmol/L (3.5-5.1); Protein, Total 7.5 g/dL (6.4-8.2); Sodium Level 139 mmol/L (136-145); T4 Total, Thyroxin 11.6 ug/dL (4.8-13.9); Thyroid Stim Hormone (TSH) 1.37 uIU/mL (0.358-3.74)
== END | disposition home or self-care (01) ==
LOC: LAB 13:08
PROVIDERS: PCP Internal Medicine; Referring Provider Internal Medicine Cardiovascular Disease; Visit Provider Internal Medicine Cardiovascular Disease
DX: E04.9 Nontoxic goiter, unspecified (principal); R10.2 Pelvic and perineal pain; R20.2 Paresthesia of skin; R07.9 Chest pain, unspecified
CPT/HCPCS: 36415; 80053; 82607; 84436; 84443; 84481; 85025; 86141

== ENCOUNTER → 2023-08-18 | Outpatient (CLI) | payer OTHER, SELFPAY ==
[2023-08-18 12:13] LABS: Absolute Lymphocyte Count 2.18 X10^3/uL (0.83-4.51); Absolute Neutrophil Count 1.9 X10^3/uL (2.0-7.7); Basophil# 0.02 X10^3/uL; Basophil% 0.5 % (0-1); Eosinophil# 0.04 X10^3/uL; Eosinophils% 0.9 % (0-5); Erythrocyte Sedimentation Rate 2 mm/hr (0-30); Hematocrit 42.1 % (37-47); Hemoglobin 14.3 g/dL (12.0-15.0); Lymphocyte # 2.18 X10^3/ul (0.83-4.51); Lymphocyte % 49.3 % (19-41); Mean Corpuscular Hgb 30.3 pg (27.0-32.0); Mean Corpuscular Volume 89.2 fL (81-99); Mean Platelet Vol. 9.9 fl (6.2-12.0); Monocyte# 0.27 X10^3/uL; Monocyte% 6.1 % (0-10); NRBC Flagged by Analyzer 0 % (0-5); Platelet Count 293 K/mm3 (150-450); RBC Distribution Width CV 11.5 % (11.6-14.6); RBC Distribution Width SD 36.9 fl (35.1-43.9); Red Blood Count 4.72 M/mm3 (4.2-5.4); White Blood Count 4.4 K/mm3 (4.4-11.0)
[2023-08-18 12:48] LABS: CRP, High Sensitivity Cardiac 1.54 mg/L
[2023-08-18 13:15] LABS: ALB/GLOB Ratio 0.9 RATIO (0.9-2.4); AST(SGOT) 14 U/L (15-37); Alanine Aminotransfer ALT/SGPT 15 U/L (13-56); Albumin, Serum 3.6 g/dL (3.2-5.0); Alkaline Phosphatase 59 U/L (45-117); Anion Gap 7 (5-15); BUN 10 mg/dL (7-18); CRP < 2.90 mg/L (0.0-3.0); Calcium,Total 9.2 mg/dL (8.5-10.1); Chloride 106 mmol/L (98-107); Creatinine, Serum 0.77 mg/dL (0.55-1.02); EST Glomerular Filtration Rate 100 mL/min (>60); Est Glom Filt Rate - Afr Amer 121 mL/min (>60); Globulin 4.1 g/dL (2.2-4.2); Glucose 86 mg/dL (74-106); Potassium 4.1 mmol/L (3.5-5.1); Protein, Total 7.7 g/dL (6.4-8.2); Sodium Level 138 mmol/L (136-145); Thyroid Stim Hormone (TSH) 1.22 uIU/mL (0.358-3.74)
[2023-08-19 12:11] LABS: Anti-Centromere B Ab <0.2 AI (0.0-0.9); Anti-Chromatin <0.2 AI (0.0-0.9); Anti-Jo <0.2 AI (0.0-0.9); Anti-Scleroderma-70 AB <0.2 AI (0.0-0.9); Anti-dsDNA Ab 1 IU/mL (0-9); RNP Ab 0.5 AI (0.0-0.9); SJOGREN'S Anti-SS-A test < 0.2 AI (0.0-0.9); SJOGREN'S Anti-SS-B test < 0.2 AI (0.0-0.9); Smith Ab <0.2 AI (0.0-0.9)
== END | disposition home or self-care (01) ==
LOC: BIMLAB 11:10
PROVIDERS: Internal Medicine Cardiovascular Disease; PCP Internal Medicine; Visit Provider Internal Medicine
DX: R07.9 Chest pain, unspecified (principal)
CPT/HCPCS: 36415; 80053; 84443; 85025; 85652; 86140; 86141; 86225; 86235

== ENCOUNTER → 2023-08-26 | Outpatient (CLI) | payer OTHER, SELFPAY ==
--- NOTE | 2023-08-26 09:44 | EKG12_ITS ---
Test Reason : GOITER, CP Blood Pressure : / mmHG Vent. Rate : 081 BPM Atrial Rate : 081 BPM P-R Int : 126 ms QRS Dur : 068 ms QT Int : 374 ms P-R-T Axes : 075 075 037 degrees QTc Int : 434 ms Normal sinus rhythm Normal ECG Confirmed by Andrea Mg ([id number]), editor department BELEM DOSHI ([id number]) on 08/27/2023 8:55:21 AM Referred By: Sarita Nichols Confirmed By:Andrea Mg
--- NOTE | 2023-08-26 09:44 | US_ITS ---
STUDY: THYROID ULTRASOUND REASON FOR EXAM: Female, 23 years old. Palpably enlarged thyroid TECHNIQUE: Ultrasound evaluation of the thyroid was performed with real-time and static camacho-scale imaging. COMPARISON: None. FINDINGS: RIGHT LOBE: The right lobe of the thyroid gland measures 4.4 x 1.1 x 1.1 cm. There is a homogeneous echotexture. There are no demonstrated solid, cystic or complex lesions. LEFT LOBE: The left lobe of the thyroid gland measures 4.4 x 1.4 x 1.2 cm. There is a homogeneous echotexture. There are no demonstrated solid, cystic or complex lesions. ISTHMUS: The isthmus measures 2 mm. The regional lymph nodes are normal. US/Thyroid IMPRESSION: Normal ultrasound examination of the thyroid. Electronically Signed: Go Burger MD at 11:31 EDT ,
== END | disposition home or self-care (01) ==
LOC: PSN 09:43
PROVIDERS: PCP Internal Medicine; Referring Provider Internal Medicine; Visit Provider Internal Medicine
DX: R07.9 Chest pain, unspecified (principal); E04.9 Nontoxic goiter, unspecified
CPT/HCPCS: 76536; 93005

== ENCOUNTER → 2025-01-28 | Outpatient (CLI) | payer OTHER, SELFPAY ==
[2025-01-31 20:08] LABS: Chlamydia By Nucleic Acid AMP Negative (Negative); Gonococcus By Nucleic Acid AMP Negative (Negative)
== END | disposition home or self-care (01) ==
PROVIDERS: PCP Internal Medicine; Referring Provider Obstetrics & Gynecology; Visit Provider Obstetrics & Gynecology
DX: Z11.3 Encounter for screening for infections with a predominantly sexual mode of transmission (principal); Z12.4 Encounter for screening for malignant neoplasm of cervix
CPT/HCPCS: 87491; 87591; 88175; G0145